=== PATIENT | male | born 1950 | race Caucasian/White ===

== ENCOUNTER 2024-10-29 15:44 | Emergency (ER) | payer OTHER, SELFPAY ==
[2024-10-29 16:38] LABS: Hematocrit 49.0 % (39.0-52.0); Hemoglobin 16.9 g/dL (13.0-18.0); Mean Corp Hgb Conc. 34.5 g/dL (33.0-37.0); Mean Corpuscular Volume 93.7 fL (80.0-94.0); Nucleated Red Blood Cells % 0 % (-); Platelet Count 239 10^3/uL (130-400); Red Cell Dist. Width 12.2 % (11.5-14.5)
[2024-10-29 17:06] LABS: ALT (SGPT) 13 U/L (0-50); AST (SGOT) 20 U/L (17-59); Albumin 3.9 g/dl (3.5-5.0); Alkaline Phosphatase 129 U/L (38-126); Blood Urea Nitrogen 21 mg/dl (9-20); Calcium 8.7 mg/dl (8.4-10.2); Carbon Dioxide 23 mmol/L (22-30); Chloride 99 mmol/L (98-107); Glucose 531 mg/dl (70-99); Potassium 4.5 mmol/L (3.5-5.1); Sodium 131 mmol/L (135-145); Total Protein 6.6 g/dl (6.3-8.2); eGFR > 60.00
[2024-10-29 17:46] VITALS: BP 160/74
[2024-10-29 17:59] VITALS: BMI 28.8
[2024-10-29 18:00] VITALS: BP 165/80
--- NOTE | 2024-10-29 18:22 | ED.GENMED ---
History of Present Illness
<Nadja Manriquez DO, Resident - Last Filed: 10/30/24 00:20>
General
Chief Complaint: Vascular Symptoms
Source: patient and family
Exam Limitations: none
Time Seen by Provider: 10/29/24 17:56
Nursing documentation reviewed up to this point in time: agreed with
History of Present Illness
History of Present Illness:
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 For the last 2 weeks patient has been
spearing experiencing a decrease in feeling of the entire right leg, from thighs to toes. Over the last few days patient has noticed increased swelling in his right foot, unable to put his shoe on. Patient has also experienced some pain over the
last 2 days in his right lateral calf and ankle. Of note patient recently moved here from [place] with family in the end of August. Patient spent 6 days in the car. Patient denies all ROS, aside from lower right extremity musculoskeletal
complaints.
Review of Systems
<Nadja Manriquez DO, Resident - Last Filed: 10/30/24 00:20>
Review of Systems
Allergies reviewed?: Yes
All Other Systems: ROS reviewed and negative except as documented in HPI and ROS
Constitutional: Reports no symptoms
EENT: Reports no symptoms
Respiratory: Reports no symptoms
Cardiac: Reports no symptoms
ABD/GI: Reports no symptoms
: Reports no symptoms
Musculoskeletal: Reports other (Right lower extremity discomfort)
Skin: Reports no symptoms
Neurological: Reports no symptoms
Endocrine: Reports no symptoms
Hematologic/Lymphatic: Reports no symptoms
Psychiatric: Reports no symptoms
Phy Exam
<Nadja Manriquez DO, Resident - Last Filed: 10/30/24 00:20>
General Physical Exam
General Presentation: no apparent distress
General Skin: warm and dry
General Habitus: normal
Cardiovascular Exam
Cardiovascular Exam: regular rate/rhythm
Heart Sounds: normal
Pulmonary Exam
Pulmonary Exam: lungs clear and no respiratory distress
Musculoskeletal Exam
Musculoskeletal Exam: other (Decreased strength in right ankle on flexion and extension. No no tenderness noted on right calf or ankle. No swelling noted on either lower extremity.)
Skin Exam
Skin Exam: normal color
Psychiatric Exam
Psychiatric Exam: normal mood/affect
Course
<Nadja Manriquez DO, Resident - Last Filed: 10/30/24 00:20>
Orders/Labs/Results
Orders:
Orders
10/29/24 16:12
Complete Blood Count/With Diff Urgent
Comprehensive Metabolic Panel Urgent
10/29/24 20:00
US Periph Venous LOWER Ext RT Urgent
Comment:
Reason For Exam: lower leg discomfort
10/29/24 20:01
0.9% Sodium Chloride 500 ml [Nss] 500 ml IV BOLUS
10/29/24 20:12
Insulin Aspart [NOVOLOG vial] 10 units SC NOW STA
10/29/24 21:23
Bedside Glucose- Treatment ONCE
Abnormal Lab Results
10/29/24 10/29/24 10/29/24
16:12 21:38 22:46
MCH 32.3 H pg
(27.0-31.0)
Absolute Monos (auto) 0.8 H 10^3/uL
(0.1-0.6)
Monocytes % 9.6 H %
(1.7-9.3)
Sodium 131 L mmol/L
(135-145)
BUN 21 H mg/dl
(9-20)
Glucose 531 H* mg/dl
(70-99)
Alkaline Phosphatase 129 H U/L
(38-126)
POC Glucose 342 H mg/dl 307 H mg/dl
(70-99) (70-99)
10/29/24 16:12
10/29/24 21:26
Vital Signs
Initial and Last Documented VS:
Initial Vital Signs
Pulse
68
10/29/24 17:41
Last Documented Vital Signs
Pulse Resp BP Pulse Ox
65 19 155/74 97
10/29/24 20:30 10/29/24 20:30 10/29/24 21:12 10/29/24 22:45
<Sky Faria MD - Last Filed: 10/29/24 22:51>
Orders/Labs/Results
Orders:
Orders
10/29/24 16:12
Complete Blood Count/With Diff Urgent
Comprehensive Metabolic Panel Urgent
10/29/24 20:00
US Periph Venous LOWER Ext RT Urgent
Comment:
Reason For Exam: lower leg discomfort
10/29/24 20:01
0.9% Sodium Chloride 500 ml [Nss] 500 ml IV BOLUS
10/29/24 20:12
Insulin Aspart [NOVOLOG vial] 10 units SC NOW STA
10/29/24 21:23
Bedside Glucose- Treatment ONCE
Abnormal Lab Results
10/29/24 10/29/24 10/29/24
16:12 21:38 22:46
MCH 32.3 H pg
(27.0-31.0)
Absolute Monos (auto) 0.8 H 10^3/uL
(0.1-0.6)
Monocytes % 9.6 H %
(1.7-9.3)
Sodium 131 L mmol/L
(135-145)
BUN 21 H mg/dl
(9-20)
Glucose 531 H* mg/dl
(70-99)
Alkaline Phosphatase 129 H U/L
(38-126)
POC Glucose 342 H mg/dl 307 H mg/dl
(70-99) (70-99)
10/29/24 16:12
10/29/24 21:26
Vital Signs
Initial and Last Documented VS:
Initial Vital Signs
Pulse
68
10/29/24 17:41
Last Documented Vital Signs
Pulse Resp BP Pulse Ox
65 19 155/74 97
10/29/24 20:30 10/29/24 20:30 10/29/24 21:12 10/29/24 22:45
<Nadja Manriquez DO, Resident - Last Filed: 10/30/24 00:20>
MDM/Problems Addressed
MDM/Problems Addressed:
Blood work remarkable for glucose of 531 mcg/dL. Patient admits to poor insulin adherence, and did taken today. Patient blood pressure 160/74, says he has a blood pressure medication but does not remember the name. Patient reports noncompliance
with all prescription medications. Ultrasound showed no sonographic evidence for right lower extremity deep vein thrombosis.
We gave 500 cc IV fluids and 10 units of insulin. Accu-Chek blood glucose was 307. Patient will follow-up outpatient with primary care and will take his insulin as prescribed. Patient ready for discharge
<Nadja Manriquez DO, Resident - Last Filed: 10/30/24 00:20>
*Radiology
Radiology exam reviewed: radiology read reviewed
*Pulse Oximetry
SaO2: 100
Oxygen Mode of Delivery: Room air
Patient hypoxic: no
*Critical Care Note
Total Time (30-74mins, 75-104mins- exclusive of procedures): Not Applicable
ED Attending Note
<Nadja Manriquez DO, Resident - Last Filed: 10/30/24 00:20>
-
Portions of this chart may have been created with voice recognition software.� Occasional wrong word or��sound alike� substitutions may have occurred due to the inherent limitations of voice recognition software.
<Sky Faria MD - Last Filed: 10/29/24 22:51>
ED Attending Note
Patient seen and examined by attending physician: Yes
ED Attending Note:
Patient with history of CAD, hypertension, and insulin-dependent diabetes, presents to ED secondary to ongoing, intermittent right lower leg pain and heaviness sensation. Patient spoke with his primary care physician at [facility], who advised
patient come to ED for evaluation, with concern for potential blood clot. Denies loss of sensation or weakness. Denies trauma. Denies back pain. Denies fever or chills. Patient however, does admit to not having taking his medications including
insulin, as prescribed, recently.
Physical Exam
General: no apparent distress, not acutely ill. afebrile
Head: nc/t. eomi
Neck: supple. normal range of motion
Heart: s1/s2 regular rate and rhythm
Lungs: no acute respiratory distress. clear bilaterally
Abdomen: normal bowel sounds. not tender.
Neuro: alert and oriented x 3. no focal neurological deficits
Skin: no rash
Psychiatric: well kept. interactive and cooperative
Extremities: no edema. no calf tenderness.
Ultrasound lower extremity: No evidence of DVT. Patient given insulin subcu along with IV fluids secondary to hyperglycemia, without any evidence of anion gap. Patient to be reassessed. With improvement, patient will be discharged home with
recommendation to follow-up with his primary care physician at [facility].
BS improved and patient remains comfortable without any distress. Pt will be discharged home in stable. Advised checking his BS upon going home
Discharge Plan
Departure
Patient Disposition: Home (Routine Discharge)
Date of Disposition: 10/29/24
Time of Disposition: 22:50
Patient with high blood pressure during this ER visit?: Yes
Discharge Problem:
Hyperglycemia, Diabetes mellitus, Chronic leg pain
Instructions: Type 2 diabetes, Using insulin, BLOOD PRESSURE
Referrals:
[facility] [Outside]
UNKNOWN - PT DOES,NOT KNOW [Family Provider]
Activity Restrictions/Additional Instructions:
Please monitor your blood glucose levels more regularly, and take insulin as prescribed. Please follow-up with your primary care provider. If you have not found a primary care provider yet in [place], we are providing referral information for
the [facility] clinic.
Interventions
Interventions:
*Risk Screen - Suicide Last Done: 10/29/24 16:02
*Neglect/Abuse Screening Last Done: 10/29/24 16:02
*Nursing Disposition Last Done: 10/29/24 23:14
ED- Cardiac Assessment Last Done: 10/29/24 18:01
ED- Pulmonary Assessment Last Done: 10/29/24 18:00
ED-Peripheral Vascular Assessment Last Done: 10/29/24 18:00
ED-Skin Assessment Last Done: 10/29/24 18:00
Discharge Date and Time
Discharge Date/Time: 10/29/24 23:14
Print Language: WOLOF
[2024-10-29 19:00] VITALS: BP 142/62
[2024-10-29 20:00] VITALS: BP 145/65
[2024-10-29 21:12] VITALS: BP 155/74
[2024-10-29 21:40] LABS: Glucose - Point of Care 342 mg/dl (70-99)
[2024-10-29] MEDS: NOVOLOG vial 10 UNITS SC (21:49)
[2024-10-29] MEDS: NSS 500 IV (21:50)
[2024-10-29 22:48] LABS: Glucose - Point of Care 307 mg/dl (70-99)
== END 2024-10-29 23:14 | disposition home or self-care (01) ==
LOC: EMR 15:44
PROVIDERS: EMERGENCY PHYSICIAN Emergency Medicine
DX: E11.65 Type 2 diabetes mellitus with hyperglycemia (principal); G89.29 Other chronic pain; M79.661 Pain in right lower leg; I25.810 Atherosclerosis of coronary artery bypass graft(s) without angina pectoris; I10 Essential (primary) hypertension; Z79.4 Long term (current) use of insulin; Z79.01 Long term (current) use of anticoagulants; Z95.1 Presence of aortocoronary bypass graft; T38.3X6A Underdosing of insulin and oral hypoglycemic [antidiabetic] drugs, initial encounter; Z91.128 Patient's intentional underdosing of medication regimen for other reason
CPT/HCPCS: 99284; 96372; 80053; 82962; 85025; 93971